=== PATIENT | female | born 1970 | race African-American/Black ===

== ENCOUNTER 2016-12-07 19:13 | Emergency (ER) | payer SELFPAY ==
[~2016-12-07] VITALS: Ht 167.6 cm; Wt 124.7 kg
[~2016-12-07 19:13] MED LIST: DIAZEPAM PO; NAPROXEN PO; NO MEDICATIONS; PERCOCET5/325 PO; SKELAXIN PO; VICODIN 5/500 T1 TAB PO
== END 2016-12-07 21:15 | disposition home or self-care (01) ==
LOC: SED 19:13
DX: S39.012A Strain of muscle, fascia and tendon of lower back, initial encounter (principal); V49.00XA Driver injured in collision with unspecified motor vehicles in nontraffic accident, initial encounter; Y92.410 Unspecified street and highway as the place of occurrence of the external cause
CPT/HCPCS: 99283